=== PATIENT | male | born 1950 | race Caucasian/White ===

== ENCOUNTER 2019-03-22 19:27 | Observation (INO) ==
[2019-03-22] MEDS ORDERED: MORPHINE 4 MG/1 ML VIAL IV STA (20:02)
[2019-03-22] MEDS ORDERED: ONDANSETRON 4 MG/2 ML VIAL IV STA (20:03)
[2019-03-22] MEDS ORDERED: ASPIRIN 325 MG TABLET PO STA (20:08)
[2019-03-22] MEDS ORDERED: NITROGLYCERIN 2% OINT 1 INCH/GM PACK TOP STA (20:08)
[2019-03-22] MEDS ORDERED: ENOXAPARIN 30 MG/0.3 ML SYRINGE SUBCUT STA (20:09)
[2019-03-22 20:14] LABS: Basophils % 0.6 % (0.0-0.8); Hematocrit 41.6 VOL% (42.0-52.0); Hemoglobin 14.4 GM/DL (14.0-18.0); Immature Granulocytes % 0.4 %; Immature Granulocytes Absolute 0.02 #; Lymphocytes # 1.5 10*3/uL (1.4-4.0); Lymphocytes % 28.5 % (21.2-54.2); Mean Corpuscular HGB Conc 34.6 GM/DL (32-36); Mean Corpuscular Volume 93.1 FL (87-102); Mean Platelet Volume 9.8 FL (9.6-12.0); Monocytes % 10.6 % (1.7-12.7); Neutrophils % 59.9 % (38.7-73.9); Platelet Count 212 T/CUMM (130-400); Red Blood Count 4.47 MC/CUMM (3.8-5.5); White Blood Count 5.3 T/CUMM (4-12)
[2019-03-22 20:27] LABS: Albumin 3.6 G/DL (3.4-5.0); Bilirubin,Total 0.4 MG/DL (0.2-1.0); Calcium 8.5 MG/DL (8.5-10.1); Osmolality,Calculated 285.5 MOS/KG (273-304); Total Protein 6.5 G/DL (6.4-8.3)
[2019-03-22] MEDS ORDERED: ACETAMINOPHEN 325 MG TABLET PO PRN (21:43)
[2019-03-22] MEDS ORDERED: ONDANSETRON 4 MG/2 ML VIAL IV PRN (21:43)
[2019-03-22] MEDS: methylPREDNISolone SOD SUC 40 MG/1 ML VIAL IV SCH (22:06)
[2019-03-23] MEDS: methylPREDNISolone SOD SUC 40 MG/1 ML VIAL IV SCH ×4 (04:12→22:30)
[2019-03-23] MEDS: MECLIZINE 25 MG TABLET PO SCH ×2 (09:01→22:31)
[2019-03-23] MEDS ORDERED: GLUCAGON 1 MG VIAL IM PRN (10:06)
[2019-03-23] MEDS ORDERED: DEXTROSE 10% 250 ML BAG IV PRN (10:06)
[2019-03-23 10:40] LABS: Basophils % 0.2 % (0.0-0.8); Hematocrit 42.5 VOL% (42.0-52.0); Hemoglobin 14.9 GM/DL (14.0-18.0); Immature Granulocytes % 0.3 %; Immature Granulocytes Absolute 0.02 #; Lymphocytes # 0.9 10*3/uL (1.4-4.0); Lymphocytes % 13.3 % (21.2-54.2); Mean Corpuscular HGB Conc 35.1 GM/DL (32-36); Mean Corpuscular Volume 90.4 FL (87-102); Mean Platelet Volume 9.7 FL (9.6-12.0); Monocytes % 3.7 % (1.7-12.7); Neutrophils % 82.5 % (38.7-73.9); Platelet Count 226 T/CUMM (130-400); Red Cell Distribution Width 11.8 % (9.3-17.3); White Blood Count 6.5 T/CUMM (4-12)
[2019-03-23 11:07] LABS: Osmolality,Calculated 280.7 MOS/KG (273-304); Thyroid Stimulating Hormone 3.56 uIU/ml (0.358-3.74)
[2019-03-23] MEDS: SODIUM CHLORIDE 0.9% 1,000 ML IV SCH (11:11)
[2019-03-23] MEDS ORDERED: MAGNESIUM SULF RIDER 2 GM in PREMIX 1 EACH IV PRN (11:36)
[2019-03-23] MEDS ORDERED: MAGNESIUM SULF RIDER 4 GM in PREMIX 1 EACH IV PRN (11:36)
[2019-03-23] MEDS: INSULIN LISPRO 100 UNIT/ML SUBCUT SCH ×3 (12:25→22:25)
[2019-03-23] MEDS ORDERED: hydrALAZINE 20 MG/1 ML VIAL IV PRN (13:38)
[2019-03-23 15:31] LABS: Apearance,Urine CLEAR (Clear); Bilirubin,Urine Negative (Negative); Blood, Urine Negative (Negative); Glucose,Urine (UA) 50 mg/dL (Negative); Ketones,Urine 20 mg/dL (Negative); Mucus,Urine Occasional /LPF (Occasional); Nitrite,Urine Negative (Negative); Protein,Urine Negative; RBC,Urine 1 /HPF (0-4); Urine Color Yellow (Yellow); Urine Specific Gravity 1.014 (1.001-1.035); Urine Urobilinogen < 2.0 EU/DL (0.2-1.0); WBC,Urine <1 /HPF (0-6)
[2019-03-23] MEDS ORDERED: LORazepam 2 MG/1 ML VIAL IM PRN (16:22)
[2019-03-23] MEDS ORDERED: traMADol 50 MG TABLET PO PRN (16:59)
[2019-03-23] MEDS: levETIRAcetam 500 MG TABLET PO SCH (20:22)
[2019-03-23] MEDS: carBAMazepine 200 MG TABLET PO SCH (20:22)
[2019-03-23] MEDS ORDERED: CITALOPRAM 20 MG TABLET PO SCH (21:00)
[2019-03-24] MEDS: SODIUM CHLORIDE 0.9% 1,000 ML IV SCH (06:12)
[2019-03-24] MEDS ORDERED: MAGNESIUM SULF RIDER 2 GM in PREMIX 1 EACH IV PRN (08:26)
[2019-03-24] MEDS: INSULIN LISPRO 100 UNIT/ML SUBCUT SCH ×4 (08:37→20:37)
[2019-03-24] MEDS: MECLIZINE 25 MG TABLET PO SCH ×2 (08:37→20:37)
[2019-03-24] MEDS: levETIRAcetam 500 MG TABLET PO SCH ×3 (08:37→22:20)
[2019-03-24] MEDS: carBAMazepine 200 MG TABLET PO SCH ×3 (08:38→22:20)
[2019-03-24] MEDS ORDERED: TAMSULOSIN 0.4 MG CAPSULE PO SCH (09:00)
[2019-03-24] MEDS ORDERED: PRAMIPEXOLE 1 MG TABLET PO SCH (09:00)
[2019-03-24] MEDS: methylPREDNISolone SOD SUC 40 MG/1 ML VIAL IV SCH ×2 (10:54→22:23)
[2019-03-24] MEDS ORDERED: hydrALAZINE 20 MG/1 ML VIAL IV PRN (18:17)
[2019-03-24] MEDS ORDERED: CITALOPRAM 20 MG TABLET PO SCH (21:00)
[2019-03-24] MEDS ORDERED: GABAPENTIN 100 MG CAPSULE PO SCH (21:19)
[2019-03-25] MEDS: SODIUM CHLORIDE 0.9% 1,000 ML IV SCH (03:35)
[2019-03-25 06:08] LABS: Basophils % 0.6 % (0.0-0.8); Hematocrit 39.9 VOL% (42.0-52.0); Hemoglobin 13.3 GM/DL (14.0-18.0); Immature Granulocytes % 0.6 %; Immature Granulocytes Absolute 0.04 #; Lymphocytes # 2.3 10*3/uL (1.4-4.0); Lymphocytes % 32.5 % (21.2-54.2); Mean Corpuscular HGB Conc 33.3 GM/DL (32-36); Mean Corpuscular Volume 94.8 FL (87-102); Mean Platelet Volume 9.8 FL (9.6-12.0); Monocytes % 10.7 % (1.7-12.7); Neutrophils % 55.6 % (38.7-73.9); Platelet Count 205 T/CUMM (130-400); Red Blood Count 4.21 MC/CUMM (3.8-5.5); White Blood Count 7.2 T/CUMM (4-12)
[2019-03-25 06:38] LABS: Calcium 8.4 MG/DL (8.5-10.1); Osmolality,Calculated 285.5 MOS/KG (273-304)
[2019-03-25 06:45] LABS: Risk Ratio 5.58; VLDL CHOLESTEROL 45.8 MG/DL
[2019-03-25] MEDS: INSULIN LISPRO 100 UNIT/ML SUBCUT SCH (08:10)
[2019-03-25] MEDS ORDERED: TAMSULOSIN 0.4 MG CAPSULE PO SCH (09:00)
[2019-03-25] MEDS ORDERED: PRAMIPEXOLE 0.25 MG TABLET PO SCH (09:00)
[2019-03-25] MEDS ORDERED: PRAMIPEXOLE 1 MG TABLET PO SCH (09:00)
[2019-03-25] MEDS ORDERED: IRBESARTAN HYDROCHLOROTHIAZIDE PO SCH (09:00)
[2019-03-25] MEDS: carBAMazepine 200 MG TABLET PO SCH (09:09)
[2019-03-25] MEDS: MECLIZINE 25 MG TABLET PO SCH (09:09)
[2019-03-25] MEDS: levETIRAcetam 500 MG TABLET PO SCH (09:09)
[2019-03-25 09:25] VITALS: BP 132/69
== END 2019-03-25 09:45 | disposition home or self-care (01) ==
LOC: EDUNIT# → EDBD → N.ED 19:27 → N.EDINP 19:27 → SUATTDRO 21:43 → N.TELEN 22:37
PROVIDERS: ADMIT Family Medicine; ATTEND Family Medicine